=== PATIENT | male | born 1950 | race Hispanic/Latino ===

== ENCOUNTER 2018-07-27 14:52 | Emergency (ER) | payer MEDICARE ==
[2018-07-27] MEDS ORDERED: Ondansetron PF 4 MG/2 ML Vial ONE (15:24)
[2018-07-27] MEDS ORDERED: Pantoprazole 40 MG VIAL ONE (15:24)
[2018-07-27] MEDS ORDERED: Morphine 4 MG/ML VIAL ONE (15:24)
[2018-07-27 15:26] LABS: #Basophils 0.1 thou/uL (0.0-0.2); #Lymphocytes 1.7 thou/uL (1.20-3.40); #Monocytes 0.6 thou/uL (0.11-0.59); #Neutrophils 3.7 thou/uL (1.40-6.50); %Basophils 1.5 % (0.0-1.0); %Eosinophils 0.6 % (0.0-10.0); %Lymphocytes 27.6 % (21.0-51.0); %Monocytes 9.9 % (0.0-10.0); %Neutrophils 60.4 % (42.0-75.0); Hemoglobin 14.3 g/dL (14.0-18.0); Mean Corpuscular HGB CONC 33.6 g/dL (32.0-36.0); Mean Corpuscular Hemoglobin 32.5 pg (27.0-31.0); Mean Corpuscular Volume 96.6 fL (78.0-98.0); Mean Platelet Volume 7.5 fL (7.4-10.4); Platelet Count 291 thou/uL (130-400); RBC Distribution Width 12.6 % (11.5-14.5); Red Blood Cell (RBC) Count 4.39 mill/uL (4.70-6.10); White Blood Cell (WBC) Count 6.1 thou/uL (4.8-10.8)
[2018-07-27 15:40] LABS: ALT (SGPT) 22 U/L (8-55); AST (SGOT) 30 U/L (5-34); Albumin 4.7 g/dL (3.4-4.8); Alkaline Phosphatase 105 U/L (40-150); Anion Gap 11 mmol/L (10-20); BUN (Urea Nitrogen) 11 mg/dL (8.4-25.7); Bilirubin, Total 0.4 mg/dL (0.2-1.2); Calc. Creatinine Clearance 0 mL/min (70-130); Calcium 9.7 mg/dL (7.8-10.44); Carbon Dioxide 30 mmol/L (23-31); Chloride 102 mmol/L (98-107); Estimated GFR-MDRD 72; Globulin 2.8 g/dL (2.4-3.5); Glucose 95 mg/dL (80-115); Lipase 29 U/L (8-78); Potassium 3.9 mmol/L (3.5-5.1); Protein, Total 7.5 g/dL (5.8-8.1); Sodium 139 mmol/L (136-145)
--- NOTE | 2018-07-27 16:25 | RAD ---
Acute abdominal series INDICATION: Abdominal pain; predominantly in the epigastric region, sharp and burning COMPARISON: Prior exam dated March 29, 2013 FINDINGS: CHEST: LUNGS: Clear. Cardiomediastinal silhouette: Normal. Pleural effusion or pneumothorax: Negative. Pneumoperitoneum: Negative. ABDOMEN: Bowel gas pattern: Unobstructed. There is a mild amount of retained stool within the colon. Abnormal calcifications: None Osseous structures: No acute osseous abnormality is demonstrated. Additional findings: Cholecystectomy clips are seen within the right upper quadrant of the abdomen. IMPRESSION: 1. No acute abnormality. 2. Cholecystectomy
== END 2018-07-27 16:43 | disposition home or self-care (01) ==
LOC: SCSER 14:52
DX: R10.13 Epigastric pain (principal); F41.9 Anxiety disorder, unspecified; Z79.891 Long term (current) use of opiate analgesic; Z79.899 Other long term (current) drug therapy
CPT/HCPCS: 74022; 80053; 83605; 83690; 84484; 85025; 93005; 96361; 96374; 96375; C9113; J2270; J2405

== ENCOUNTER 2018-08-16 02:35 | Emergency (ER) | payer MEDICARE ==
[2018-08-16 03:06] LABS: #Basophils 0.1 thou/uL (0.0-0.2); #Eosinphils 0.2 thou/uL (0.0-0.7); #Lymphocytes 3.3 thou/uL (1.20-3.40); #Monocytes 0.8 thou/uL (0.11-0.59); %Basophils 1.2 % (0.0-1.0); %Eosinophils 2.2 % (0.0-10.0); %Monocytes 9.7 % (0.0-10.0); %Neutrophils 47.9 % (42.0-75.0); Hemoglobin 13.8 g/dL (14.0-18.0); Mean Corpuscular Volume 94.3 fL (78.0-98.0); Mean Platelet Volume 6.5 fL (7.4-10.4); Platelet Count 275 thou/uL (130-400); RBC Distribution Width 12.2 % (11.5-14.5); Red Blood Cell (RBC) Count 4.19 mill/uL (4.70-6.10); White Blood Cell (WBC) Count 8.4 thou/uL (4.8-10.8)
[2018-08-16 03:11] LABS: Bacteria/HPF None Seen HPF (None Seen); Bilirubin Negative (Negative); Blood, Urine Trace (Negative); Clarity Slightly Cloudy (Clear); Glucose, Urine (Dipstick) Negative (Negative); Hyaline Casts/LPF NONE SEEN LPF (0-3 Hyaline); Leukocyte Negative (Negative); Nitrite Negative (Negative); Protein, Urine (Dipstick) Negative (Neg-Trace); RBC/HPF 0-3 HPF (0-3); Squamous Epithelial 0-3 HPF (0-3); Urobilinogen 0.2 mg/dL (0.2-1.0); WBC/HPF None Seen HPF (0-3)
[2018-08-16 03:20] LABS: ALT (SGPT) 22 U/L (8-55); AST (SGOT) 28 U/L (5-34); Albumin 4.7 g/dL (3.4-4.8); Alkaline Phosphatase 104 U/L (40-150); Anion Gap 13 mmol/L (10-20); BUN (Urea Nitrogen) 13 mg/dL (8.4-25.7); Bilirubin, Total 0.4 mg/dL (0.2-1.2); Calc. Creatinine Clearance 0 mL/min (70-130); Calcium 10.1 mg/dL (7.8-10.44); Carbon Dioxide 30 mmol/L (23-31); Chloride 101 mmol/L (98-107); Estimated GFR-MDRD 67; Globulin 2.9 g/dL (2.4-3.5); Glucose 98 mg/dL (80-115); Lipase 35 U/L (8-78); Potassium 3.7 mmol/L (3.5-5.1); Protein, Total 7.6 g/dL (5.8-8.1); Sodium 140 mmol/L (136-145)
[2018-08-16] MEDS ORDERED: Morphine 4 MG/ML VIAL ONE (03:22)
[2018-08-16] MEDS ORDERED: Mag-Al Plus 1200 MG/1200 MG/120 MG/30 ML UDCUP ONE (03:23)
[2018-08-16] MEDS ORDERED: Lidocaine Viscous Sol 2% 15 ml UD Cup ONE (03:23)
[2018-08-16] MEDS ORDERED: Ondansetron PF 4 MG/2 ML Vial ONE (03:23)
--- NOTE | 2018-08-16 07:42 | RAD ---
KUB: INDICATION: History of chronic pancreatitis. COMPARISON: Prior acute abdominal series dated 07/27/2018. IMPRESSION: Bowel gas pattern is unobstructed. Cholecystectomy clips are present in the right upper quadrant. T he osseous structures appear unchanged. POS: BH
== END 2018-08-16 04:00 | disposition home or self-care (01) ==
LOC: SCSER 02:35
DX: K59.00 Constipation, unspecified (principal); K21.9 Gastro-esophageal reflux disease without esophagitis; F41.9 Anxiety disorder, unspecified; Z79.82 Long term (current) use of aspirin; Z79.891 Long term (current) use of opiate analgesic
CPT/HCPCS: 74018; 80053; 81003; 81015; 83690; 84484; 85025; 96361; 96374; 96375; J2270; J2405

== ENCOUNTER 2018-11-08 05:03 | Emergency (ER) | payer MEDICARE, OTHER ==
[2018-11-08] MEDS ORDERED: Morphine 4 MG/ML VIAL ONE ×2 (05:37→06:54)
[2018-11-08] MEDS ORDERED: Ondansetron PF 4 MG/2 ML Vial ONE (05:37)
[2018-11-08 06:23] LABS: #Basophils 0.1 thou/uL (0.0-0.2); #Eosinphils 0.2 thou/uL (0.0-0.7); #Lymphocytes 2.4 thou/uL (1.20-3.40); #Monocytes 0.9 thou/uL (0.11-0.59); #Neutrophils 3.1 thou/uL (1.40-6.50); %Basophils 1.7 % (0.0-1.0); %Eosinophils 2.9 % (0.0-10.0); %Monocytes 13.3 % (0.0-10.0); %Neutrophils 46.1 % (42.0-75.0); Hemoglobin 12.1 g/dL (14.0-18.0); Mean Corpuscular HGB CONC 34.6 g/dL (32.0-36.0); Mean Corpuscular Hemoglobin 32.7 pg (27.0-31.0); Mean Corpuscular Volume 94.6 fL (78.0-98.0); Mean Platelet Volume 7.8 fL (7.4-10.4); Platelet Count 208 thou/uL (130-400); RBC Distribution Width 12.7 % (11.5-14.5); White Blood Cell (WBC) Count 6.7 thou/uL (4.8-10.8)
[2018-11-08 06:36] LABS: ALT (SGPT) 19 U/L (8-55); AST (SGOT) 29 U/L (5-34); Albumin 3.8 g/dL (3.4-4.8); Alkaline Phosphatase 87 U/L (40-150); Anion Gap 10 mmol/L (10-20); BUN (Urea Nitrogen) 12 mg/dL (8.4-25.7); Bilirubin, Total 0.4 mg/dL (0.2-1.2); Calc. Creatinine Clearance 0 mL/min (70-130); Calcium 8.2 mg/dL (7.8-10.44); Carbon Dioxide 28 mmol/L (23-31); Chloride 107 mmol/L (98-107); Estimated GFR-MDRD Greater than 90; Globulin 2.3 g/dL (2.4-3.5); Glucose 91 mg/dL (80-115); Lipase 37 U/L (8-78); Potassium 3.6 mmol/L (3.5-5.1); Protein, Total 6.1 g/dL (5.8-8.1); Sodium 141 mmol/L (136-145)
== END 2018-11-08 07:07 | disposition home or self-care (01) ==
LOC: SCSER 05:03
DX: R10.9 Unspecified abdominal pain (principal); F41.9 Anxiety disorder, unspecified; Z79.899 Other long term (current) drug therapy
CPT/HCPCS: 36415; 80053; 83690; 85025; 96361; 96374; 96375; 96376; J2270; J2405

== ENCOUNTER 2020-06-15 12:43 | Outpatient (CLI) | payer MEDICARE, OTHER | END 2020-06-15 12:44 | disposition home or self-care (01) | LOC: TBSIIMAG 12:43 | PROVIDERS: ATTEND Neurological Surgery | DX: M51.16 Intervertebral disc disorders with radiculopathy, lumbar region (principal); M47.26 Other spondylosis with radiculopathy, lumbar region; M47.27 Other spondylosis with radiculopathy, lumbosacral region; M48.061 Spinal stenosis, lumbar region without neurogenic claudication; M48.07 Spinal stenosis, lumbosacral region | CPT/HCPCS: 72148 ==

== ENCOUNTER 2022-05-11 11:09 | Emergency (ER) | payer MEDICARE, OTHER ==
[2022-05-11 11:47] LABS: #Lymphocytes 1.5 thou/uL (1.20-3.40); #Monocytes 0.5 thou/uL (0.11-0.59); #Neutrophils 15.1 thou/uL (1.40-6.50); %Basophils 0.1 % (0.0-1.0); %Eosinophils 0.2 % (0.0-10.0); %Lymphocytes 8.7 % (21.0-51.0); %Monocytes 3.1 % (0.0-10.0); %Neutrophils 87.9 % (42.0-75.0); Hemoglobin 14.9 g/dL (14.0-18.0); Mean Corpuscular HGB CONC 33.3 g/dL (32.0-36.0); Mean Corpuscular Hemoglobin 33.1 pg (27.0-31.0); Mean Corpuscular Volume 99.3 fl (78.0-98.0); Mean Platelet Volume 7.5 fL (7.4-10.4); Platelet Count 339 10x3/uL (130-400); RBC Distribution Width 13.6 % (11.5-14.5); Red Blood Cell (RBC) Count 4.49 mill/uL (4.70-6.10); White Blood Cell (WBC) Count 17.2 10x3/uL (4.8-10.8)
[2022-05-11] MEDS ORDERED: Iopamidol-370 76% 500 ML 1 ML ONE (11:51)
[2022-05-11 12:00] LABS: INR-International Normal Ratio 0.9; Prothrombin Time 12.8 sec (12.0-14.7)
[2022-05-11 12:10] LABS: ALT (SGPT) 24 U/L (8-55); AST (SGOT) 27 U/L (5-34); Albumin 5.1 g/dL (3.4-4.8); Alkaline Phosphatase 127 U/L (40-110); Anion Gap 16 mmol/L (10-20); BUN (Urea Nitrogen) 19 mg/dL (8.4-25.7); Bilirubin, Total 0.5 mg/dL (0.2-1.2); Calc. Creatinine Clearance 0 mL/min (70-130); Calcium 10.5 mg/dL (7.8-10.44); Carbon Dioxide 26 mmol/L (23-31); Chloride 101 mmol/L (98-107); Estimated GFR 71; Globulin 2.9 g/dL (2.4-3.5); Glucose 172 mg/dL (80-115); Potassium 4.1 mmol/L (3.5-5.1); Sodium 139 mmol/L (136-145)
[2022-05-11] MEDS ORDERED: cefTRIAXone\\ROCEPHIN 2 GM VIAL ONE (13:16)
[2022-05-11] MEDS ORDERED: Azithromycin 500 MG VIAL ONE (13:16)
[2022-05-11 13:55] LABS: CK (CPK) 40 U/L (30-200); Lipase 20 U/L (8-78)
[2022-05-11] MEDS ORDERED: Acetaminophen 500 MG TAB ONE (14:39)
== END 2022-05-11 15:00 | disposition home or self-care (01) ==
LOC: ERS 11:09
DX: J18.9 Pneumonia, unspecified organism (principal); D72.829 Elevated white blood cell count, unspecified
CPT/HCPCS: 71045; 71275; 80053; 82550; 83605; 83690; 83880; 84484; 85025; 85610; 85730; 87040; 93005; 94760; J0456; 36415; 96374; 96375; J0696; Q9967

== ENCOUNTER 2023-06-16 09:04 | Emergency (ER) | payer MEDICARE, OTHER ==
[2023-06-16 09:53] LABS: #Basophils 0.03 10x3/uL (0.0-0.2); %Basophils 0.3 % (0.0-1.0); %Eosinophils 1.5 % (0.0-10.0); %Lymphocytes 16.6 % (21.0-51.0); %Monocytes 7.1 % (0.0-10.0); %Neutrophils 74.1 % (42.0-75.0); Hematocrit 37.6 % (42.0-52.0); Hemoglobin 13.5 g/dL (14.0-18.0); Mean Corpuscular HGB CONC 35.9 g/dL (32.0-36.0); Mean Corpuscular Hemoglobin 33.8 pg (27.0-31.0); Mean Corpuscular Volume 94.2 fL (78.0-98.0); Mean Platelet Volume 9.4 fL (7.4-10.4); Platelet Count 344 10x3/uL (130-400); RBC Distribution Width 13.7 % (11.5-14.5); Red Blood Cell (RBC) Count 3.99 mill/uL (4.70-6.10)
[2023-06-16 10:03] LABS: Bacteria/HPF None Seen HPF (None Seen); Bilirubin Negative (Negative); Blood, Urine Negative (Negative); CAUTI Indications for Culture Pelvic or flank pain; Clarity Clear (Clear); Glucose, Urine (Dipstick) Normal (Negative); Ketone, Urine 60 mg/dL (Negative); Leukocyte Negative Leu/uL (Negative); Nitrite Negative (Negative); Protein, Urine (Dipstick) 10 mg/dL (Neg-Trace); RBC/HPF 0-3 HPF (0-3); Specific Gravity, Urine 1.025 (1.002-1.036); Squamous Epithelial None Seen HPF (0-3); Urobilinogen Normal mg/dL (Less than 2); WBC/HPF 0-3 HPF (0-3); pH, Urine 6.5 (5.0-9.0)
[2023-06-16] MEDS ORDERED: diphenhydrAMINE 50 MG/ML VIAL ONE (10:06)
[2023-06-16] MEDS ORDERED: Morphine 4 MG/ML VIAL ONE ×2 (10:06→10:58)
[2023-06-16] MEDS ORDERED: Ketorolac Tromethamine 30 MG (1 mL) VIAL ONE (10:06)
[2023-06-16 10:09] LABS: ALT (SGPT) 18 U/L (8-55); AST (SGOT) 26 U/L (5-34); Albumin 4.6 g/dL (3.4-4.8); Alkaline Phosphatase 116 U/L (40-110); Anion Gap 16 mmol/L (10-20); BUN (Urea Nitrogen) 13 mg/dL (8.4-25.7); Bilirubin, Total 0.6 mg/dL (0.2-1.2); Calc. Creatinine Clearance 0 mL/min (70-130); Calcium 10.1 mg/dL (7.8-10.44); Carbon Dioxide 27 mmol/L (23-31); Chloride 98 mmol/L (98-107); Estimated GFR 92; Glucose 101 mg/dL (80-115); Potassium 4.2 mmol/L (3.5-5.1); Protein, Total 7.6 g/dL (5.8-8.1); Sodium 137 mmol/L (136-145)
[2023-06-16] MEDS ORDERED: Ondansetron PF 4 MG/2 ML Vial ONE (10:10)
[2023-06-16 10:21] LABS: Urine Culture Reflex No No
== END 2023-06-16 11:06 | disposition home or self-care (01) ==
LOC: ERS 09:04
DX: R51.9 Headache, unspecified (principal); K08.89 Other specified disorders of teeth and supporting structures
CPT/HCPCS: 80053; 81001; 83605; 85025; 96361; 96374; 96375; 96376; J1200; J1885; J2270; J2405

== ENCOUNTER 2023-08-07 03:01 | Emergency (ER) | payer MEDICARE ==
[2023-08-07 04:25] LABS: Influenza A by NAA Not Detected (NotDetected); Influenza B by NAA Not Detected (NotDetected); SARS-CoV-2 NAA Rapid Test Not Detected (NotDetected)
[2023-08-07 04:33] LABS: #Basophils 0.04 10x3/uL (0.0-0.2); %Basophils 0.4 % (0.0-1.0); %Eosinophils 1.8 % (0.0-10.0); %Lymphocytes 16.9 % (21.0-51.0); %Monocytes 8.7 % (0.0-10.0); %Neutrophils 71.9 % (42.0-75.0); Hematocrit 36.5 % (42.0-52.0); Hemoglobin 12.4 g/dL (14.0-18.0); Mean Corpuscular Hemoglobin 32.8 pg (27.0-31.0); Mean Corpuscular Volume 96.6 fL (78.0-98.0); Mean Platelet Volume 9.4 fL (7.4-10.4); Platelet Count 319 10x3/uL (130-400); RBC Distribution Width 14.5 % (11.5-14.5); Red Blood Cell (RBC) Count 3.78 mill/uL (4.70-6.10)
[2023-08-07 04:45] LABS: ALT (SGPT) 15 U/L (8-55); AST (SGOT) 20 U/L (5-34); Albumin 4.1 g/dL (3.4-4.8); Alkaline Phosphatase 86 U/L (40-110); Anion Gap 12 mmol/L (10-20); BUN (Urea Nitrogen) 20 mg/dL (8.4-25.7); Bilirubin, Total 0.4 mg/dL (0.2-1.2); Calc. Creatinine Clearance 0 mL/min (70-130); Carbon Dioxide 28 mmol/L (23-31); Chloride 105 mmol/L (98-107); Estimated GFR 92; Globulin 2.8 g/dL (2.4-3.5); Glucose 101 mg/dL (80-115); Potassium 4.3 mmol/L (3.5-5.1); Protein, Total 6.9 g/dL (5.8-8.1); Sodium 141 mmol/L (136-145)
[2023-08-07 05:40] LABS: Troponin I Less than 0.010 ng/mL (< 0.028)
[2023-08-07] MEDS ORDERED: predniSONE 20 MG TAB ONE (06:51)
== END 2023-08-07 07:10 | disposition home or self-care (01) ==
LOC: ERS 03:01
DX: R05.9 Cough, unspecified (principal); D64.9 Anemia, unspecified; Z79.899 Other long term (current) drug therapy
CPT/HCPCS: 0240U; 71045; 80053; 83880; 84484; 85025; 87081; 87430; 93005; 99284; 36415; J7512

== ENCOUNTER 2023-09-04 21:38 | Emergency (ER) | payer MEDICARE ==
[2023-09-04] MEDS ORDERED: Morphine 4 MG/ML VIAL ONE (23:57)
[2023-09-04] MEDS ORDERED: Pantoprazole 40 MG VIAL ONE (23:57)
[2023-09-04] MEDS ORDERED: Ondansetron PF 4 MG/2 ML Vial ONE (23:57)
[2023-09-05 00:45] LABS: #Basophils 0.05 10x3/uL (0.0-0.2); %Basophils 0.6 % (0.0-1.0); %Monocytes 12.2 % (0.0-10.0); %Neutrophils 53.3 % (42.0-75.0); Hematocrit 36.8 % (42.0-52.0); Mean Corpuscular HGB CONC 35.3 g/dL (32.0-36.0); Mean Corpuscular Hemoglobin 33.2 pg (27.0-31.0); Mean Corpuscular Volume 94.1 fL (78.0-98.0); Mean Platelet Volume 9.4 fL (7.4-10.4); Platelet Count 389 10x3/uL (130-400); Red Blood Cell (RBC) Count 3.91 mill/uL (4.70-6.10)
[2023-09-05 01:04] LABS: ALT (SGPT) 24 U/L (8-55); AST (SGOT) 24 U/L (5-34); Albumin 3.2 g/dL (3.4-4.8); Alkaline Phosphatase 55 U/L (40-110); Anion Gap 9 mmol/L (10-20); BUN (Urea Nitrogen) 19 mg/dL (8.4-25.7); Bilirubin, Total 0.2 mg/dL (0.2-1.2); CK (CPK) 37 U/L (30-200); Calc. Creatinine Clearance 0 mL/min (70-130); Calcium 7.4 mg/dL (7.8-10.44); Carbon Dioxide 21 mmol/L (23-31); Chloride 114 mmol/L (98-107); Estimated GFR 99; Globulin 1.8 g/dL (2.4-3.5); Glucose 71 mg/dL (80-115); Lipase 21 U/L (8-78); Potassium 3.3 mmol/L (3.5-5.1); Sodium 141 mmol/L (136-145)
[2023-09-05 01:14] LABS: Troponin I Less than 0.010 ng/mL (< 0.028)
[2023-09-05] MEDS ORDERED: Morphine 4 MG/ML VIAL ONE (01:55)
[2023-09-05 02:05] LABS: Bacteria/HPF None Seen HPF (None Seen); Bilirubin Negative (Negative); Blood, Urine Negative (Negative); Clarity Clear (Clear); Glucose, Urine (Dipstick) Normal (Negative); Ketone, Urine 10 mg/dL (Negative); Leukocyte Negative Leu/uL (Negative); Nitrite Negative (Negative); Protein, Urine (Dipstick) Negative (Neg-Trace); RBC/HPF 0-3 HPF (0-3); Specific Gravity, Urine 1.023 (1.002-1.036); Squamous Epithelial None Seen HPF (0-3); Urobilinogen Normal mg/dL (Less than 2); WBC/HPF 0-3 HPF (0-3)
[2023-09-05 02:06] LABS: Urine Culture Reflex Yes Yes
== END 2023-09-05 02:20 | disposition home or self-care (01) ==
LOC: ERS 21:38
DX: R10.9 Unspecified abdominal pain (principal); G89.29 Other chronic pain; E86.0 Dehydration
CPT/HCPCS: 80053; 81001; 82550; 83690; 84484; 85025; 93005; 96361; 96374; 96375; 96376; 99284; C9113; J2270 ×2; J2405

== ENCOUNTER 2023-09-05 06:23 | Emergency (ER) | payer MEDICARE ==
[2023-09-05 06:47] LABS: #Basophils 0.03 10x3/uL (0.0-0.2); %Basophils 0.3 % (0.0-1.0); %Eosinophils 1.6 % (0.0-10.0); %Lymphocytes 24.2 % (21.0-51.0); %Monocytes 11.4 % (0.0-10.0); %Neutrophils 60.6 % (42.0-75.0); Hematocrit 37.7 % (42.0-52.0); Mean Corpuscular HGB CONC 34.5 g/dL (32.0-36.0); Mean Corpuscular Hemoglobin 33.8 pg (27.0-31.0); Mean Corpuscular Volume 97.9 fL (78.0-98.0); Mean Platelet Volume 8.8 fL (7.4-10.4); Platelet Count 366 10x3/uL (130-400); Red Blood Cell (RBC) Count 3.85 mill/uL (4.70-6.10)
[2023-09-05 07:20] LABS: Troponin I Less than 0.010 ng/mL (< 0.028)
[2023-09-05] MEDS ORDERED: Morphine 4 MG/ML VIAL ONE ×2 (07:25→10:14)
[2023-09-05] MEDS ORDERED: Ondansetron PF 4 MG/2 ML Vial ONE (07:25)
[2023-09-05 07:43] LABS: ALT (SGPT) 39 U/L (8-55); AST (SGOT) 36 U/L (5-34); Albumin 4.1 g/dL (3.4-4.8); Alkaline Phosphatase 72 U/L (40-110); Anion Gap 14 mmol/L (10-20); BUN (Urea Nitrogen) 17 mg/dL (8.4-25.7); Bilirubin, Total 0.5 mg/dL (0.2-1.2); Calc. Creatinine Clearance 0 mL/min (70-130); Calcium 9.3 mg/dL (7.8-10.44); Carbon Dioxide 23 mmol/L (23-31); Chloride 105 mmol/L (98-107); Estimated GFR 92; Globulin 3.1 g/dL (2.4-3.5); Glucose 95 mg/dL (80-115); Lipase 38 U/L (8-78); Potassium 3.8 mmol/L (3.5-5.1); Protein, Total 7.2 g/dL (5.8-8.1); Sodium 138 mmol/L (136-145)
[2023-09-05] MEDS ORDERED: Iopamidol-370 76% 500 ML MDV (1 ML CHARGE) ONE (08:57)
[2023-09-05 09:59] LABS: Bacteria/HPF None Seen HPF (None Seen); Bilirubin Negative (Negative); Blood, Urine Negative (Negative); CAUTI Indications for Culture Pelvic or flank pain; Clarity Clear (Clear); Glucose, Urine (Dipstick) Normal (Negative); Ketone, Urine Negative (Negative); Leukocyte Negative Leu/uL (Negative); Nitrite Negative (Negative); Protein, Urine (Dipstick) Negative (Neg-Trace); RBC/HPF None Seen HPF (0-3); Specific Gravity, Urine 1.029 (1.002-1.036); Squamous Epithelial None Seen HPF (0-3); Urobilinogen Normal mg/dL (Less than 2); WBC/HPF None Seen HPF (0-3); pH, Urine 7.5 (5.0-9.0)
[2023-09-05 10:06] LABS: Urine Culture Reflex No No
== END 2023-09-05 10:25 | disposition home or self-care (01) ==
LOC: ERS 06:23
DX: K21.9 Gastro-esophageal reflux disease without esophagitis (principal); Z79.899 Other long term (current) drug therapy; R10.9 Unspecified abdominal pain; G89.29 Other chronic pain; E86.0 Dehydration
CPT/HCPCS: 74177; 80053; 81001; 83690; 84484; 85025; 93005; 96374; 96375; 96376; 99284; J2270; J2405; Q9967; 36415; 82550; 96361; C9113

== ENCOUNTER 2024-02-21 15:20 | Emergency (ER) | payer MEDICARE, OTHER ==
[2024-02-21 16:17] LABS: #Basophils 0.03 10x3/uL (0.0-0.2); %Basophils 0.3 % (0.0-1.0); %Lymphocytes 17.6 % (21.0-51.0); %Monocytes 9.6 % (0.0-10.0); %Neutrophils 70.9 % (42.0-75.0); Hematocrit 40.7 % (42.0-52.0); Mean Corpuscular HGB CONC 34.4 g/dL (32.0-36.0); Mean Corpuscular Hemoglobin 32.9 pg (27.0-31.0); Mean Corpuscular Volume 95.5 fL (78.0-98.0); Mean Platelet Volume 9.3 fL (7.4-10.4); Platelet Count 312 10x3/uL (130-400); RBC Distribution Width 14.1 % (11.5-14.5); Red Blood Cell (RBC) Count 4.26 mill/uL (4.70-6.10)
[2024-02-21 16:35] LABS: ALT (SGPT) 28 U/L (8-55); AST (SGOT) 30 U/L (5-34); Albumin 4.6 g/dL (3.4-4.8); Alkaline Phosphatase 101 U/L (40-110); Anion Gap 16 mmol/L (10-20); BUN (Urea Nitrogen) 18 mg/dL (8.4-25.7); Bilirubin, Total 0.5 mg/dL (0.2-1.2); Calc. Creatinine Clearance 0 mL/min (70-130); Carbon Dioxide 26 mmol/L (23-31); Chloride 103 mmol/L (98-107); Estimated GFR 88; Globulin 3.3 g/dL (2.4-3.5); Glucose 109 mg/dL (83-110); Lipase 20 U/L (8-78); Potassium 3.9 mmol/L (3.5-5.1); Protein, Total 7.9 g/dL (5.8-8.1); Sodium 141 mmol/L (136-145)
[2024-02-21 18:36] LABS: Bacteria/HPF None Seen HPF (None Seen); Bilirubin Negative (Negative); Blood, Urine Negative (Negative); CAUTI Indications for Culture Dysuria,urgency,freq; Clarity Clear (Clear); Glucose, Urine (Dipstick) Normal (Negative); Ketone, Urine 100 mg/dL (Negative); Leukocyte Negative Leu/uL (Negative); Nitrite Negative (Negative); Protein, Urine (Dipstick) 20 mg/dL (Neg-Trace); RBC/HPF 0-3 HPF (0-3); Specific Gravity, Urine 1.033 (1.002-1.036); Squamous Epithelial None Seen HPF (0-3); Urobilinogen Normal mg/dL (Less than 2); WBC/HPF 0-3 HPF (0-3)
[2024-02-21 18:39] LABS: Urine Culture Reflex No No
[2024-02-21] MEDS ORDERED: Morphine 2 MG/ML VIAL ONE (19:33)
[2024-02-21] MEDS ORDERED: Ondansetron PF 4 MG/2 ML Vial ONE (19:33)
== END 2024-02-21 20:44 | disposition home or self-care (01) ==
LOC: ERS 15:20
DX: K59.00 Constipation, unspecified (principal)
CPT/HCPCS: 74176; 80053; 81001; 83605; 83690; 85025; J2272; J2405; 36415; 96374; 96375

== ENCOUNTER 2024-03-09 14:26 | Emergency (ER) | payer MEDICARE, OTHER ==
[2024-03-09] MEDS ORDERED: Morphine 4 MG/ML VIAL ONE (15:29)
[2024-03-09] MEDS ORDERED: Ondansetron ODT 4 MG TAB ONE (15:29)
[2024-03-09] MEDS ORDERED: Ketorolac Tromethamine 30 MG (1 mL) VIAL ONE (15:29)
[2024-03-09] MEDS ORDERED: Diazepam 5 MG TAB ONE (15:41)
== END 2024-03-09 16:50 | disposition home or self-care (01) ==
LOC: ERS 14:26
DX: M47.9 Spondylosis, unspecified (principal); M54.31 Sciatica, right side
CPT/HCPCS: 72100; J1885; J2272; Q0162; 96372; 99283

== ENCOUNTER 2024-03-31 01:47 | Emergency (ER) | payer MEDICARE, OTHER ==
[2024-03-31] MEDS ORDERED: Morphine 4 MG/ML VIAL ONE (02:30)
[2024-03-31] MEDS ORDERED: Metoclopramide HCl 10 MG (2 mL) VIAL ONE (02:30)
[2024-03-31] MEDS ORDERED: Mag-Al 1200 mg/1200 mg/30 ML UDCUP ONE (02:31)
[2024-03-31] MEDS ORDERED: Lidocaine Viscous Sol 2% 15 ml UD Cup ONE (02:31)
[2024-03-31] MEDS ORDERED: Famotidine/PF 20 mg/2ml Vial ONE (02:31)
[2024-03-31 02:36] LABS: #Basophils 0.03 10x3/uL (0.0-0.2); %Basophils 0.2 % (0.0-1.0); %Lymphocytes 18.9 % (21.0-51.0); %Neutrophils 66.8 % (42.0-75.0); Hemoglobin 12.2 g/dL (14.0-18.0); Mean Corpuscular HGB CONC 33.9 g/dL (32.0-36.0); Mean Corpuscular Hemoglobin 33.5 pg (27.0-31.0); Mean Corpuscular Volume 98.9 fL (78.0-98.0); Mean Platelet Volume 9.2 fL (7.4-10.4); Platelet Count 314 10x3/uL (130-400); RBC Distribution Width 15.9 % (11.5-14.5); Red Blood Cell (RBC) Count 3.64 mill/uL (4.70-6.10)
[2024-03-31 02:53] LABS: ALT (SGPT) 19 U/L (8-55); AST (SGOT) 16 U/L (5-34); Albumin 3.9 g/dL (3.4-4.8); Alkaline Phosphatase 88 U/L (40-110); Anion Gap 12 mmol/L (10-20); BUN (Urea Nitrogen) 23 mg/dL (8.4-25.7); Bilirubin, Total 0.2 mg/dL (0.2-1.2); Calc. Creatinine Clearance 0 mL/min (70-130); Calcium 9.6 mg/dL (7.8-10.44); Carbon Dioxide 27 mmol/L (23-31); Chloride 108 mmol/L (98-107); Estimated GFR 92; Globulin 2.9 g/dL (2.4-3.5); Glucose 110 mg/dL (83-110); Lipase 47 U/L (8-78); Magnesium 2.2 mg/dL (1.6-2.6); Potassium 3.9 mmol/L (3.5-5.1); Protein, Total 6.8 g/dL (5.8-8.1); Sodium 143 mmol/L (136-145)
[2024-03-31 02:54] LABS: Troponin I Less than 0.010 ng/mL (< 0.028)
[2024-03-31 03:44] LABS: Bacteria/HPF None Seen HPF (None Seen); Bilirubin Negative (Negative); Blood, Urine Negative (Negative); CAUTI Indications for Culture Pelvic or flank pain; Clarity Clear (Clear); Glucose, Urine (Dipstick) Normal (Negative); Ketone, Urine Negative (Negative); Leukocyte Negative Leu/uL (Negative); Nitrite Negative (Negative); Protein, Urine (Dipstick) 20 mg/dL (Neg-Trace); RBC/HPF 0-3 HPF (0-3); Specific Gravity, Urine 1.044 (1.002-1.036); Squamous Epithelial 0-3 HPF (0-3); Urobilinogen Normal mg/dL (Less than 2); WBC/HPF 0-3 HPF (0-3); pH, Urine 5.5 (5.0-9.0)
[2024-03-31 03:48] LABS: Urine Culture Reflex No No
== END 2024-03-31 04:19 | disposition home or self-care (01) ==
LOC: ERS 01:47
DX: K86.1 Other chronic pancreatitis (principal); E86.0 Dehydration
CPT/HCPCS: 80053; 81001; 83690; 83735; 84484; 85025; J2272; J2765; J3490; 96374; 96375; J2270

== ENCOUNTER 2024-05-24 07:49 | Emergency (ER) | payer MEDICARE ==
[2024-05-24] MEDS ORDERED: Ondansetron PF 4 MG/2 ML Vial ONE (09:08)
[2024-05-24] MEDS ORDERED: Mag-Al 1200 mg/1200 mg/30 ML UDCUP ONE (09:12)
[2024-05-24] MEDS ORDERED: Lidocaine Viscous Sol 2% 15 ml UD Cup ONE (09:12)
[2024-05-24] MEDS ORDERED: Sucralfate 1 GM/10 ML UDCUP ONE (10:22)
== END 2024-05-24 10:50 | disposition home or self-care (01) ==
LOC: ERS 07:49
DX: K29.00 Acute gastritis without bleeding (principal); Z87.19 Personal history of other diseases of the digestive system
CPT/HCPCS: 96374; J2405

== ENCOUNTER 2024-10-25 01:17 | Emergency (ER) | payer MEDICARE, OTHER ==
[2024-10-25 01:48] LABS: #Basophils 0.05 10x3/uL (0.0-0.2); #Eosinophils 0.25 10x3/uL (0.0-0.7); #Monocytes 0.84 10x3/uL (0.11-0.59); #Neutrophils 2.89 10x3/uL (1.40-6.50); %Basophils 0.8 % (0.0-1.0); %Eosinophils 3.8 % (0.0-10.0); %Lymphocytes 37.5 % (21.0-51.0); %Monocytes 12.9 % (0.0-10.0); %Neutrophils 44.4 % (42.0-75.0); Hematocrit 34.7 % (42.0-52.0); Hemoglobin 11.8 g/dL (14.0-18.0); Mean Corpuscular Hemoglobin 33.9 pg (27.0-31.0); Mean Corpuscular Volume 99.7 fL (78.0-98.0); Platelet Count 313 10x3/uL (130-400); Red Blood Cell (RBC) Count 3.48 mill/uL (4.70-6.10); White Blood Cell (WBC) Count 6.51 10x3/uL (4.8-10.8)
[2024-10-25 02:11] LABS: ALT (SGPT) 26 U/L (Less than 45); AST (SGOT) 37 U/L (11-34); Albumin 4.6 g/dL (3.1-4.5); Alkaline Phosphatase 77 U/L (40-110); Anion Gap 11 mmol/L (10-20); BUN (Urea Nitrogen) 19 mg/dL (8.4-25.7); Bilirubin, Total 0.3 mg/dL (0.3-1.2); Calc. Creatinine Clearance 0 mL/min (70-130); Calcium 8.9 mg/dL (7.8-10.44); Carbon Dioxide 27 mmol/L (23-31); Chloride 105 mmol/L (98-107); Globulin 2.4 g/dL (2.4-3.5); Glucose 103 mg/dL (83-110); Lipase 36 U/L (8-78); Potassium 4.1 mmol/L (3.5-5.1); Sodium 139 mmol/L (136-145)
[2024-10-25] MEDS ORDERED: Famotidine/PF 20 mg/2ml Vial ONE (02:13)
[2024-10-25] MEDS ORDERED: Ondansetron PF 4 MG/2 ML Vial ONE (02:13)
[2024-10-25] MEDS ORDERED: Pantoprazole 40 MG VIAL ONE (02:13)
[2024-10-25 02:17] LABS: Troponin I Less than 0.010 ng/mL (< 0.028)
[2024-10-25 02:22] LABS: Bacteria/HPF None Seen HPF (None Seen); CAUTI Indications for Culture Pelvic or flank pain; Glucose, Urine (Dipstick) Normal (Negative); Leukocyte Negative Leu/uL (Negative); Protein, Urine (Dipstick) Negative (Neg-Trace); RBC/HPF 0-3 HPF (0-3); Specific Gravity, Urine 1.025 (1.002-1.036); Urine Culture Reflex No No; WBC/HPF 0-3 HPF (0-3)
== END 2024-10-25 05:31 | disposition home or self-care (01) ==
LOC: ERS 01:17
DX: R10.13 Epigastric pain (principal); R93.41 Abnormal radiologic findings on diagnostic imaging of renal pelvis, ureter, or bladder; K59.00 Constipation, unspecified; K76.0 Fatty (change of) liver, not elsewhere classified
CPT/HCPCS: 71275; 74174; 80053; 81001; 83690; 84484; 85025; 93005; J1308; J2270; J2405; J2470; 36415; 96374; 96375

== ENCOUNTER 2024-11-28 14:52 | Inpatient (IN) | payer MEDICARE, OTHER ==
[~2024-11-28 14:52] MED LIST: Iopamidol-370 76% 500 ML MDV (1 ML CHARGE) ONE
[2024-11-28 15:49] LABS: #Basophils 0.09 10x3/uL (0.0-0.2); #Eosinophils 0.22 10x3/uL (0.0-0.7); #Monocytes 1.96 10x3/uL (0.11-0.59); #Neutrophils 15.69 10x3/uL (1.40-6.50); %Basophils 0.4 % (0.0-1.0); %Eosinophils 1.1 % (0.0-10.0); %Lymphocytes 10.9 % (21.0-51.0); %Monocytes 9.5 % (0.0-10.0); %Neutrophils 76.3 % (42.0-75.0); Hematocrit 40.2 % (42.0-52.0); Hemoglobin 13.5 g/dL (14.0-18.0); Mean Corpuscular Hemoglobin 33.7 pg (27.0-31.0); Mean Corpuscular Volume 100.2 fL (78.0-98.0); Platelet Count 339 10x3/uL (130-400); Red Blood Cell (RBC) Count 4.01 mill/uL (4.70-6.10); White Blood Cell (WBC) Count 20.58 10x3/uL (4.8-10.8)
[2024-11-28 16:07] LABS: ALT (SGPT) 18 U/L (Less than 45); AST (SGOT) 34 U/L (11-34); Albumin 4.9 g/dL (3.1-4.5); Alkaline Phosphatase 70 U/L (40-110); Anion Gap 15 mmol/L (10-20); BUN (Urea Nitrogen) 19 mg/dL (8.4-25.7); Bilirubin, Total 0.3 mg/dL (0.3-1.2); Calc. Creatinine Clearance 0 mL/min (70-130); Calcium 9.8 mg/dL (7.8-10.44); Carbon Dioxide 22 mmol/L (23-31); Chloride 108 mmol/L (98-107); Globulin 2.6 g/dL (2.4-3.5); Glucose 106 mg/dL (83-110); Lipase 30 U/L (8-78); Potassium 3.9 mmol/L (3.5-5.1); Sodium 141 mmol/L (136-145)
[2024-11-28] MEDS ORDERED: Ondansetron PF 4 MG/2 ML Vial ONE (16:19)
[2024-11-28] MEDS ORDERED: Famotidine/PF 20 mg/2ml Vial ONE (16:19)
[2024-11-28 18:00] LABS: Bacteria/HPF None Seen HPF (None Seen); CAUTI Indications for Culture Dysuria,urgency,freq; Glucose, Urine (Dipstick) Normal (Negative); Leukocyte Negative Leu/uL (Negative); Protein, Urine (Dipstick) Negative (Neg-Trace); RBC/HPF None Seen HPF (0-3); Specific Gravity, Urine 1.030 (1.002-1.036); WBC/HPF None Seen HPF (0-3)
[2024-11-28 18:01] LABS: Urine Culture Reflex No No
[2024-11-28] MEDS ORDERED: Acetaminophen 325 MG TAB PO PRN (19:44)
[2024-11-28] MEDS: Famotidine 20 MG TAB PO SCH (21:08)
[2024-11-28] MEDS: cefTRIAXone\\ROCEPHIN 2 GM in Sodium Chloride 0.9% 100 ML IVPB SCH (21:08)
[2024-11-28] MEDS: Ondansetron PF 4 MG/2 ML Vial IVP PRN (22:00)
[2024-11-29] MEDS: HYDROcodone/Acetaminophen 5/325 mg Tablet PO PRN (00:02)
[2024-11-29 06:00] LABS: #Basophils 0.06 10x3/uL (0.0-0.2); #Eosinophils 0.47 10x3/uL (0.0-0.7); #Monocytes 1.56 10x3/uL (0.11-0.59); #Neutrophils 9.64 10x3/uL (1.40-6.50); %Basophils 0.5 % (0.0-1.0); %Eosinophils 3.5 % (0.0-10.0); %Lymphocytes 10.1 % (21.0-51.0); %Monocytes 11.7 % (0.0-10.0); %Neutrophils 72.5 % (42.0-75.0); Hematocrit 30.7 % (42.0-52.0); Hemoglobin 10.3 g/dL (14.0-18.0); Mean Corpuscular Hemoglobin 34.1 pg (27.0-31.0); Mean Corpuscular Volume 101.7 fL (78.0-98.0); Platelet Count 256 10x3/uL (130-400); Red Blood Cell (RBC) Count 3.02 mill/uL (4.70-6.10); White Blood Cell (WBC) Count 13.30 10x3/uL (4.8-10.8)
[2024-11-29 06:07] LABS: Anion Gap 11 mmol/L (10-20); BUN (Urea Nitrogen) 12 mg/dL (8.4-25.7); Calc. Creatinine Clearance 74 mL/min (70-130); Calcium 8.2 mg/dL (7.8-10.44); Carbon Dioxide 23 mmol/L (23-31); Chloride 111 mmol/L (98-107); Glucose 107 mg/dL (83-110); Potassium 3.9 mmol/L (3.5-5.1); Sodium 141 mmol/L (136-145)
[2024-11-29] MEDS: Enoxaparin 40 MG (0.4 mL) SYRINGE SC SCH (08:54)
[2024-11-29 14:28] LABS: Campy jejuni + coli by PCR Negative (Negative); STEC Shiga Toxin 1+2 Negative (Negative); Salmonella spp. by PCR Negative (Negative); Shigella spp + EIEC by PCR Negative (Negative)
[2024-11-29] MEDS ORDERED: Cyclobenzaprine 10 MG TAB PO PRN (16:34)
[2024-11-29] MEDS ORDERED: clonazePAM 0.5 MG TAB PO PRN (16:34)
[2024-11-30 05:29] LABS: #Basophils 0.04 10x3/uL (0.0-0.2); #Eosinophils 0.29 10x3/uL (0.0-0.7); #Monocytes 0.80 10x3/uL (0.11-0.59); #Neutrophils 3.16 10x3/uL (1.40-6.50); %Basophils 0.7 % (0.0-1.0); %Eosinophils 4.9 % (0.0-10.0); %Lymphocytes 25.6 % (21.0-51.0); %Monocytes 13.6 % (0.0-10.0); %Neutrophils 53.5 % (42.0-75.0); Hematocrit 31.7 % (42.0-52.0); Hemoglobin 10.6 g/dL (14.0-18.0); Mean Corpuscular Hemoglobin 33.3 pg (27.0-31.0); Mean Corpuscular Volume 99.7 fL (78.0-98.0); Platelet Count 260 10x3/uL (130-400); Red Blood Cell (RBC) Count 3.18 mill/uL (4.70-6.10); White Blood Cell (WBC) Count 5.90 10x3/uL (4.8-10.8)
[2024-11-30 06:03] LABS: Anion Gap 12 mmol/L (10-20); BUN (Urea Nitrogen) 11 mg/dL (8.4-25.7); Calc. Creatinine Clearance 66 mL/min (70-130); Calcium 8.7 mg/dL (7.8-10.44); Carbon Dioxide 22 mmol/L (23-31); Chloride 110 mmol/L (98-107); Glucose 94 mg/dL (83-110); Magnesium 2.2 mg/dL (1.6-2.6); Potassium 3.7 mmol/L (3.5-5.1); Sodium 140 mmol/L (136-145)
[2024-11-30] MEDS: Enoxaparin 30 MG (0.3 mL) SYRINGE SC SCH (09:32)
[2024-11-30] MEDS: Pantoprazole 40 MG DR.TAB PO SCH (09:32)
[2024-11-30] MEDS: Pancrelipase DR 12,000 1 CAP PO SCH (09:32)
[2024-12-01 05:47] LABS: #Basophils 0.04 10x3/uL (0.0-0.2); #Eosinophils 0.27 10x3/uL (0.0-0.7); #Monocytes 0.71 10x3/uL (0.11-0.59); #Neutrophils 1.78 10x3/uL (1.40-6.50); %Basophils 0.9 % (0.0-1.0); %Eosinophils 5.8 % (0.0-10.0); %Lymphocytes 38.2 % (21.0-51.0); %Monocytes 15.2 % (0.0-10.0); %Neutrophils 38.2 % (42.0-75.0); Hematocrit 31.8 % (42.0-52.0); Hemoglobin 10.8 g/dL (14.0-18.0); Mean Corpuscular Hemoglobin 33.6 pg (27.0-31.0); Mean Corpuscular Volume 99.1 fL (78.0-98.0); Platelet Count 265 10x3/uL (130-400); Red Blood Cell (RBC) Count 3.21 mill/uL (4.70-6.10); White Blood Cell (WBC) Count 4.66 10x3/uL (4.8-10.8)
[2024-12-01 05:58] LABS: Anion Gap 12 mmol/L (10-20); BUN (Urea Nitrogen) 12 mg/dL (8.4-25.7); Calc. Creatinine Clearance 62 mL/min (70-130); Calcium 8.7 mg/dL (7.8-10.44); Carbon Dioxide 20 mmol/L (23-31); Chloride 110 mmol/L (98-107); Glucose 102 mg/dL (83-110); Potassium 3.6 mmol/L (3.5-5.1); Sodium 138 mmol/L (136-145)
[2024-12-01 08:00] VITALS: BP 125/66; TEMP 97.5
== END 2024-12-01 12:40 | disposition home or self-care (01) | DRG 392 ==
LOC: ERS 14:52 → T4-A 18:11
PROVIDERS: ADMIT Internal Medicine; ATTEND Internal Medicine
DX: K52.9 Noninfective gastroenteritis and colitis, unspecified (principal); K56.7 Ileus, unspecified; K86.1 Other chronic pancreatitis; R65.10 Systemic inflammatory response syndrome (SIRS) of non-infectious origin without acute organ dysfunction; N40.0 Benign prostatic hyperplasia without lower urinary tract symptoms; D50.9 Iron deficiency anemia, unspecified; K21.9 Gastro-esophageal reflux disease without esophagitis; F41.9 Anxiety disorder, unspecified; Z88.1 Allergy status to other antibiotic agents; Z88.8 Allergy status to other drugs, medicaments and biological substances; Z91.011 Allergy to milk products; Z90.49 Acquired absence of other specified parts of digestive tract; Z79.899 Other long term (current) drug therapy
CPT/HCPCS: 36415; 74177; 80048; 80053; 81001; 83605; 83690; 83735; 84100; 84484; 85025; 87040; 87505; 93005; 96361; 96365; 96375; 96376; J0696; J1650; J2543; J7030; Q9967